=== PATIENT | female | born 1955 | race Caucasian/White ===

== ENCOUNTER 2018-07-26 04:01 | Emergency (ER) | payer MEDICARE, MEDICAID ==
[~2018-07-26] VITALS: Ht 162.6 cm; Wt 72.6 kg
[2018-07-26 04:24] VITALS: BP 148/97
[2018-07-26] MEDS ORDERED: Hydromorphone 0.5mg/0.5ml inj IVP ONE (04:30)
--- NOTE | 2018-07-26 04:30 | Emergency Room Report ---
History of Present Illness General Chief Complaint: Pain Source: Patient Present Illness HPI Is a 63-year-old female with no cerebrovascular past medical history. She had back surgery with spinal fusion about 2 and half years ago. Since then she's been doing well. She presents with chief complaint of right flank pain and muscle spasm started tonight. She also had a large amount of diarrhea. No fever chills but no nausea no vomiting. Pain localized the right side. Worse with movement. Unable to get comfortable. No relief with Motrin. No other complaint. No incontinence of bowel or urine. No numbness to her leg. Pain is not around her surgical site. Pain is 8 out of 10. No radiation. Allergies: Uncoded Allergies: antiemetics (Allergy, Intermediate, 07/26/18) Patient History Past Medical History: see triage record, old chart reviewed Past Surgical History: other Pertinent Family History: none Social History: Denies: smoking Now: No Immunizations: other Reviewed Nursing Documentation: PMH: Agreed; PSxH: Agreed Nursing Documentation-PM Past Medical History: No History, Except For Review of Systems Eye: Denies: eye pain, blurred vision ENT: Denies: ear pain, nose congestion, throat swelling Respiratory: Denies: cough, shortness of breath Cardiovascular: Denies: chest pain, palpitations Gastrointestinal: Denies: abdominal pain, diarrhea, nausea, vomiting Musculoskeletal: Reports: back pain; Denies: joint pain Skin: Denies: rash Neurological: Denies: headache, numbness Endocrine: Denies: increased thirst, increased urine Hematologic/Lymphatic: Denies: easy bruising All Other Systems: negative except mentioned in HPI Physical Exam Vital Signs Date Time Temp Pulse Resp B/P (MAP) Pulse Ox O2 Delivery O2 Flow Rate FiO2 07/26/18 04:11 98.2 102 18 157/102 92 Room Air 98.2 vitals with high blood pressure Sp02 EP Interpretation: reviewed, normal General Appearance: well appearing, no apparent distress, alert Head: normocephalic, atraumatic Eyes: bilateral eye PERRL, bilateral eye EOMI ENT: hearing grossly normal, normal pharynx Neck: full range of motion, supple, no meningismus Respiratory: chest non-tender, lungs clear, normal breath sounds Cardiovascular #1: regular rate, rhythm, no murmur Gastrointestinal: normal bowel sounds, non tender, no mass, no organomegaly, no bruit, non-distended Musculoskeletal: back normal, gait/station normal, normal range of motion, other - Muscle spasm to the right flank around the midthoracic upper lumbar area. No midline tenderness. No rash. Psychiatric: mood/affect normal Skin: warm/dry Medical Decision Making Diagnostic Impression: Primary Impression: Muscle spasm of back Additional Impression: UTI (urinary tract infection) Qualified Codes: N30.00 - Acute cystitis without hematuria ER Course Patient with back spasm of the right flank area. No evidence of gallstone. No evidence of cauda equina syndrome, spinal epidural abscess or neoplastic process. Urine show leukocytosis, few bacteria in small amount of WBC. We'll cover for potential for UTI. She did have a large amount of diarrhea. This may cause some of her spasm and pain. Pain is better controlled now. She does have elevated lipase but no left upper quadrant pain. Lab Results Impression labs unremarkable Last Vital Signs Date Time Temp Pulse Resp B/P (MAP) Pulse Ox O2 Delivery O2 Flow Rate FiO2 07/26/18 04:24 98.2 78 18 148/97 94 Room Air 98.2 Status: improved Disposition: HOME, SELF-CARE Condition: Stable Scripts Diazepam* (VALIUM*) 5 Mg Tablet 5 MG ORAL TID PRN for spasm, #15 TAB 0 Refills Prov: Cuate Jim MD 07/26/18 Cephalexin* (KEFLEX*) 500 Mg Capsule 500 MG ORAL TID, #21 CAP Prov: Cuate Jim MD 07/26/18 Hydrocodone/Acetaminophen 5-325* (HYDROCODONE/ACETAMINOPHEN 5-325*) 1 Each Tablet 1 TAB ORAL Q6H PRN for For Pain, #20 TAB 0 Refills Prov: Cuate Jim MD 07/26/18 Additional Instructions: Follow-up with your doctor in 2-3 days if not better. Return if symptom worsen. Cuate Jim MD Jul 26, 2018 04:30
[2018-07-26 05:12] LABS: ANION GAP 16 mmol/L (5-15); BLOOD UREA NITROGEN 18 mg/dL (7-18); CALCIUM 9.7 MG/DL (8.5-10.1); CARBON DIOXIDE 19 MMOL/L (21-32); CHLORIDE 105 MMOL/L (98-107); CREATININE 0.9 MG/DL (0.55-1.30); POTASSIUM 3.6 MMOL/L (3.5-5.1); SODIUM 140 MMOL/L (136-145)
[2018-07-26] MEDS ORDERED: HYDROmorphone 1mg/ml Carpuject IVP ONE (05:15)
[2018-07-26 05:16] LABS: ALANINE AMINOTRANSFERASE 46 U/L (12-78); ALBUMIN 3.9 G/DL (3.4-5.0); ALBUMIN/GLOBULIN RATIO 0.9 (1.0-2.7); ALKALINE PHOSPHATASE 89 U/L (46-116); ASPARTATE AMINO TRANSFERASE 25 U/L (15-37); BILIRUBIN,TOTAL 0.8 MG/DL (0.2-1.0)
[2018-07-26 05:36] LABS: BASOPHILS % (AUTO) 0.6 % (0.0-2.0); HEMATOCRIT 44.3 % (37.0-47.0); HEMOGLOBIN 15.3 G/DL (12.0-16.0); LYMPHOCYTES % (AUTO) 29.6 % (20.0-45.0); MEAN CORPUSCULAR VOLUME 84 FL (80-99); MONOCYTES % (AUTO) 5.1 % (1.0-10.0); NEUTROPHILS % (AUTO) 62.7 % (45.0-75.0); PLATELET COUNT 331 K/UL (150-450); RED BLOOD COUNT 5.29 M/UL (4.20-5.40); RED CELL DISTRIBUTION WIDTH 11.2 % (11.6-14.8); WHITE BLOOD COUNT 8.7 K/UL (4.8-10.8)
[2018-07-26 05:49] LABS: APPEARANCE,URINE CLEAR; BILIRUBIN, URINE NEGATIVE (NEGATIVE); GLUCOSE, URINE (UA) NEGATIVE (NEGATIVE); KETONES,URINE 1+ (NEGATIVE); LEUKOCYTE ESTERASE ,URINE 2+ (NEGATIVE); NITRITE,URINE NEGATIVE (NEGATIVE); PH,URINE 5 (4.5-8.0); PROTEIN,URINE 2+ (NEGATIVE); UROBILINOGEN,URINE NORMAL MG/DL (0.0-1.0)
[2018-07-26 05:53] LABS: COLOR,URINE YELLOW
[2018-07-26] MEDS ORDERED: CEPHALEXIN500 MG ORAL (06:10)
[2018-07-26] MEDS ORDERED: HYDROCODON-ACE1 EA15 ORAL (06:10)
[2018-07-26] MEDS ORDERED: VALIUM5 MG ORAL (06:10)
[2018-07-26] MEDS ORDERED: cefTRIAXone 1 GM in NS 55 ML IVPB ONE (06:15)
[2018-07-26 06:41] VITALS: BP 132/82
[2018-07-26 06:42] VITALS: BP 132/82
[2018-07-26] MEDS ORDERED: TAMSULOSIN HCL0.4 MG ORAL (17:07)
== END 2018-07-26 07:13 | disposition home or self-care (01) ==
LOC: EMR 04:34
DX: M62.830 Muscle spasm of back (principal); N39.0 Urinary tract infection, site not specified
CPT/HCPCS: 36415; 80053; 81003; 83690; 85025; 96361; 96365; 96375; 96376; 99284; J0696; J1170

== ENCOUNTER 2018-07-26 13:38 | Emergency (ER) | payer MEDICARE, MEDICAID ==
[~2018-07-26] VITALS: Ht 162.6 cm; Wt 72.6 kg
[~2018-07-26 13:38] MED LIST: CEPHALEXIN500 MG ORAL; HYDROCODON-ACE1 EA15 ORAL; VALIUM5 MG ORAL
[2018-07-26] MEDS ORDERED: Norco 5mg/325mg tab ORAL ONE (14:45)
[2018-07-26] MEDS ORDERED: Morphine Sulfate 4mg/ml Inj (IV/IM USE ONLY) IM ONE (15:15)
--- NOTE | 2018-07-26 16:17 | Diagnostic Imaging Report ---
Indication: Abdominal pain Technique: Continuous helical transaxial imaging of the abdomen and pelvis was obtained from the lung bases to the pubic symphysis. No intravenous contrast was administered. Coronal 2-D reformats were also obtained. Automatic Exposure Control was utilized. Total Dose length Product (DLP): 830.[address] Dose Index Volume (CTDIvol): 15.23 mGy Comparison: none Findings: Lung bases are clear. There is a tiny stone in the upper pole the right kidney nonobstructive. No hydronephrosis seen. The appendix is normal. There is no free fluid or free air or evidence of bowel obstruction. Uterus noted. Mild arterial calcifications are present. Lower lumbar fusion hardware demonstrated L4-S1 right laminectomies at L5 and L4 noted. IMPRESSION: Normal appendix. Tiny nonobstructive stone in the upper pole right kidney. Lower lumbar surgery as described above The CT scanner at [facility] is accredited by the [employer] and the scans are performed using dose optimization techniques as appropriate to a performed exam including Automatic Exposure control.
[2018-07-26 16:38] VITALS: BP 142/89
[2018-07-26] MEDS ORDERED: Tamsulosin 0.4mg cap ORAL ONE (16:41)
[2018-07-26] MEDS ORDERED: Ketorolac 30mg Inj IM ONE (16:45)
--- NOTE | 2018-07-26 17:06 | Emergency Room Report ---
History of Present Illness General Chief Complaint: Lower Back Pain or Injury Source: Patient Present Illness HPI 63-year-old female presents to the emergency department complaining of 10 out of 10 in severity pain in the right flank area since early this morning. Patient reports that she was seen here and diagnosed with muscle spasm and was given prescriptions for muscle relaxer, antibiotic for possible UTI and Moonachie for her pain. Patient states that pharmacy states that the prescription for Moonachie was filled out incorrectly and she was unable to fill this prescription. Patient brought the prescription back here with her. Patient states that she despite taking the other medications continues to have severe symptoms and she started to become very worried. Patient denies nausea, vomiting, fevers, chills. Patient reports urinary frequency denies dysuria, hematuria or urgency. Patient states that initially her pain would wax and wane however it is become more constant. She reports history of previous low back surgery however she states that the side of her pain today is at a different location. He denies trauma or fall or recent strenuous activities. Denies: constipation, nausea/ vomiting, blood in the urine, vomit or stool, denies tenderness to the abdomen. Allergies: Uncoded Allergies: antiemetics (Allergy, Intermediate, 07/26/18) Patient History Past Medical History: see triage record Past Surgical History: none Pertinent Family History: none Now: No Reviewed Nursing Documentation: PMH: Agreed; PSxH: Agreed Review of Systems All Other Systems: negative except mentioned in HPI Physical Exam Vital Signs Date Time Temp Pulse Resp B/P (MAP) Pulse Ox O2 Delivery O2 Flow Rate FiO2 07/26/18 13:40 98.4 95 18 157/90 95 Room Air 98.4 Sp02 EP Interpretation: reviewed, normal General Appearance: alert, GCS 15, non-toxic, moderate distress Head: normocephalic, atraumatic Eyes: bilateral eye normal inspection, bilateral eye PERRL ENT: hearing grossly normal, normal voice Neck: full range of motion Respiratory: chest non-tender, lungs clear, normal breath sounds, no wheezing, speaking full sentences Cardiovascular #1: regular rate, rhythm Gastrointestinal: normal bowel sounds, non tender, soft Genitourinary: normal inspection, CVA tenderness (R) Musculoskeletal: back normal, gait/station normal, normal range of motion, non- tender Neurologic: alert, oriented x3, responsive, motor strength/tone normal, sensory intact, normal gait, speech normal, grossly normal Psychiatric: judgement/insight normal Skin: normal color, no rash, warm/dry, well hydrated Medical Decision Making PA Attestation Dr. renner is my supervising Physician whom patient management has been discussed with. Diagnostic Impression: Primary Impression: Right flank pain Additional Impression: Renal calculus, right ER Course 63-year-old female presents to the emergency department complaining of 10 out of 10 in severity pain in the right flank area since early this morning. Patient reports that she was seen here and diagnosed with muscle spasm and was given prescriptions for muscle relaxer, antibiotic for possible UTI and Moonachie for her pain. Patient states that pharmacy states that the prescription for Moonachie was filled out incorrectly and she was unable to fill this prescription. Patient brought the prescription back here with her. Patient states that she despite taking the other medications continues to have severe symptoms and she started to become very worried. Patient denies nausea, vomiting, fevers, chills. Patient reports urinary frequency denies dysuria, hematuria or urgency. Patient states that initially her pain would wax and wane however it is become more constant. She reports history of previous low back surgery however she states that the side of her pain today is at a different location. He denies trauma or fall or recent strenuous activities. Denies: constipation, nausea/ vomiting, blood in the urine, vomit or stool, denies tenderness to the abdomen. Ddx considered but are not limited to Diverticulitis, acute appy, diarrhea,UC, PUD, GE, pancreatitis, gallstone, kidney stone, pyelonephritis, UTI, obstruction. Vital signs: are WNL, pt. is afebrile H&PE are most consistent with possible renal calculi will evaluate - reviewed chart from most recent visit this am. pt. had UA and labs performed which were unremarkable . no CT imaging. ORDERS: -CBC, CMP, lipase, - UA - CT abdomen and pelvis no contrast: right renal calculi. ED INTERVENTIONS: -- 1000NS --4 mg Morphine IM for pain - Moonachie PO - Flomax PO -Toradol IM d/w pt. That stone appears small and non obstructing. continue to take abx and previously prescribed pain medications. Will need PCP follow up within 3-5 days. Pt was offered admission for intractable pain as she was concerned / worried about filling her rx, and that she is home on her own and worried. pt. declined. Pt. was given very strict ED return precautions for worsening or new symptoms. pt. verbalized her understanding and agreement with this treatment and follow up plan. pt. instructed to stay hydrated and drink plenty of water. DISCHARGE: At this time pt. is stable for d/c to home. Will provide printed patient care instructions, and any necessary prescriptions. Care plan and follow up instructions have been discussed with the patient prior to discharge. CT/MRI/US Diagnostic Results CT/MRI/US Diagnostic Results : Imaging Test Ordered: CT Abdomen and Pelvis Non Contrast Impression "Normal appendix. Tiny nonobstructive stone in the upper pole right kidney. Lower lumbar surgery as described above" Per official radiology report- Please see report for specific details. Last Vital Signs Date Time Temp Pulse Resp B/P (MAP) Pulse Ox O2 Delivery O2 Flow Rate FiO2 07/26/18 16:43 98.6 07/26/18 16:38 88 19 142/89 96 Room Air Disposition: HOME, SELF-CARE Condition: Stable Scripts Tamsulosin Hcl (TAMSULOSIN HCL*) 0.4 Mg Cap.er.24h 0.4 MG ORAL BEDTIME, #5 CAP Prov: Gaviota Melvin 07/26/18 Referrals: NOT CHOSEN IPA/MD,REFERRING (PCP) Patient Instructions: Kidney Stones, [id number] Additional Instructions: Take medications as directed. Drink plenty of water, continue previously prescribed medications: most Importantly antibiotics. Follow up with a Primary Care Provider in 3-5 days, even if your symptoms have resolved. --Please review list of primary care clinics, if you do not already have a primary care provider Return sooner to ED if new symptoms occur, or current symptoms become worse. Do not drink alcohol, drive, or operate heavy machinery while taking previously prescribed Moon[place] and Valium as this may cause drowsiness. - Please note that this Emergency Department Report was dictated using [employer] technology software, occasionally this can lead to erroneous entry secondary to interpretation by the dictation equipment. Gaviota Melvin Jul 26, 2018 17:06
[2018-07-26] MEDS ORDERED: TAMSULOSIN HCL0.4 MG ORAL (17:07)
[2018-07-26 17:23] VITALS: BP 142/89
[2018-07-26] MEDS ORDERED: Tamsulosin 0.4mg cap ORAL SCH (21:00)
== END 2018-07-26 17:23 | disposition home or self-care (01) ==
LOC: EMR 16:09
DX: N20.0 Calculus of kidney (principal)
CPT/HCPCS: 74176; 96372; 99284; J1885; J2270

== ENCOUNTER 2018-07-31 20:41 | Emergency (ER) | payer MEDICARE, MEDICAID ==
[~2018-07-31] VITALS: Ht 162.6 cm; Wt 73.5 kg
[~2018-07-31 20:41] MED LIST changes: +TAMSULOSIN HCL0.4 MG ORAL
--- NOTE | 2018-07-31 21:11 | Emergency Room Report ---
History of Present Illness General Chief Complaint: Abdominal Pain Source: Patient Present Illness HPI Is a 63-year-old female who had previous lumbar surgery. She was seen here on the for right flank pain. CT scan showed tiny nonobstructing kidney stone on the right. Urine may be infection. She was charged home with antibiotics and pain medication. She was doing well until today. Now she started having vomiting and diarrhea. Also flank pain came back. She said she had tiny amount of blood this morning but none in the afternoon. Pain is 9 out of 10. Localized to the right side. No fever or chills. Worse with movement. No other complaint. Nothing made it better. Nothing made it worse. Allergies: Uncoded Allergies: antiemetics (Allergy, Intermediate, 07/26/18) Patient History Past Medical History: see triage record, old chart reviewed Past Surgical History: other Pertinent Family History: none Social History: Denies: smoking Last Menstrual Period: 1997 Now: No : 0 Para: 0 Immunizations: other Reviewed Nursing Documentation: PMH: Agreed; PSxH: Agreed Nursing Documentation-PMH Past Medical History: No History, Except For Review of Systems Eye: Denies: eye pain, blurred vision ENT: Denies: ear pain, nose congestion, throat swelling Respiratory: Denies: cough, shortness of breath Cardiovascular: Denies: chest pain, palpitations Gastrointestinal: Reports: abdominal pain; Denies: diarrhea, nausea, vomiting Musculoskeletal: Reports: back pain; Denies: joint pain Skin: Denies: rash Neurological: Denies: headache, numbness Endocrine: Denies: increased thirst, increased urine Hematologic/Lymphatic: Denies: easy bruising All Other Systems: negative except mentioned in HPI Physical Exam Vital Signs Date Time Temp Pulse Resp B/P (MAP) Pulse Ox O2 Delivery O2 Flow Rate FiO2 07/31/18 20:54 98.1 101 16 180/93 98 Room Air vitals with high blood pressure Sp02 EP Interpretation: reviewed, normal General Appearance: well appearing, no apparent distress, alert Head: normocephalic, atraumatic Eyes: bilateral eye PERRL, bilateral eye EOMI ENT: hearing grossly normal, normal pharynx Neck: full range of motion, supple, no meningismus Respiratory: chest non-tender, lungs clear, normal breath sounds Cardiovascular #1: regular rate, rhythm, no murmur Gastrointestinal: normal bowel sounds, non tender, no mass, no organomegaly, no bruit, non-distended Musculoskeletal: back normal, gait/station normal, normal range of motion Psychiatric: mood/affect normal Skin: warm/dry Medical Decision Making Diagnostic Impression: Primary Impression: Back pain Qualified Codes: M54.5 - Low back pain ER Course Patient with right flank pain/back pain. CT scan unremarkable. I do not think that but nonobstructing punctated right kidney stone as the cause of the pain. No evidence of any dissection. No evidence of any cauda equina syndrome, spinal after abscess or neoplastic process. I suspect the pain is from degenerative back disease. She may need another MRI. Skin be done as an outpatient. No evidence of acute abdomen. Lab Results Impression labs unremarkable CT/MRI/US Diagnostic Results CT/MRI/US Diagnostic Results : Imaging Test Ordered: CT abdomen and pelvis Impression no acute process per radiologist Last Vital Signs Date Time Temp Pulse Resp B/P (MAP) Pulse Ox O2 Delivery O2 Flow Rate FiO2 07/31/18 20:54 98.1 101 16 180/93 98 Room Air Status: improved Disposition: HOME, SELF-CARE Condition: Stable Scripts Ibuprofen* (MOTRIN*) 600 Mg Tablet 600 MG ORAL THREE TIMES A DAY, #30 TAB 0 Refills Prov: Cuate Jim MD 07/31/18 Hydrocodone/Acetaminophen 5-325* (HYDROCODONE/ACETAMINOPHEN 5-325*) 1 Each Tablet 1 TAB ORAL Q6H PRN for For Pain, #20 TAB 0 Refills Prov: Cuate Jim MD 07/31/18 Additional Instructions: Follow-up with your Dr within a week. Return if symptom worsen. You may need an MRI if not better. Cuate Jim MD Jul 31, 2018 21:11
[2018-07-31] MEDS ORDERED: Ketorolac 30mg Inj IV ONE (21:15)
[2018-07-31] MEDS ORDERED: Morphine Sulfate 4mg/ml Inj (IV/IM USE ONLY) IVP ONE (21:15)
[2018-07-31 21:52] LABS: BASOPHILS % (AUTO) 0.8 % (0.0-2.0); EOSINOPHILS % (AUTO) 2.2 % (0.0-3.0); HEMATOCRIT 45.2 % (37.0-47.0); HEMOGLOBIN 15.6 G/DL (12.0-16.0); LYMPHOCYTES % (AUTO) 39.9 % (20.0-45.0); MEAN CORPUSCULAR VOLUME 86 FL (80-99); MONOCYTES % (AUTO) 2.9 % (1.0-10.0); NEUTROPHILS % (AUTO) 54.1 % (45.0-75.0); PLATELET COUNT 374 K/UL (150-450); RED BLOOD COUNT 5.27 M/UL (4.20-5.40); RED CELL DISTRIBUTION WIDTH 11.5 % (11.6-14.8)
--- NOTE | 2018-07-31 22:06 | Diagnostic Imaging Report ---
EXAM: CT Abdomen and Pelvis Without Intravenous Contrast CLINICAL HISTORY: ABD PAIN TECHNIQUE: Axial computed tomography images of the abdomen and pelvis without intravenous contrast. CTDI is 0.15, 15.47 mGy and DLP is 815 mGy-cm. One or more of the following dose reduction techniques were used: automated exposure control, adjustment of the mA and/or kV according to patient size, use of iterative reconstruction technique. COMPARISON: 07/26/2018 FINDINGS: Lung bases: Bibasilar atelectasis. ABDOMEN: Liver: Hepatic steatosis. Gallbladder and bile ducts: Unremarkable. Pancreas: Unremarkable. Spleen: Unremarkable. Adrenals: Unremarkable. Kidneys and ureters: Nonobstructing calculi within the right kidney. Stomach and bowel: Unremarkable. PELVIS: Appendix: Appendix is unremarkable. Bladder: Unremarkable. Reproductive: Unremarkable as visualized. ABDOMEN and PELVIS: Intraperitoneal space: Unremarkable. Bones/joints: Post surgical changes within the lumbar spine. No acute fracture. No dislocation. Soft tissues: Unremarkable. Vasculature: Unremarkable. No abdominal aortic aneurysm. Lymph nodes: Unremarkable. IMPRESSION: No acute findings.
[2018-07-31 22:08] LABS: ANION GAP 10 mmol/L (5-15); BLOOD UREA NITROGEN 14 mg/dL (7-18); CALCIUM 9.6 MG/DL (8.5-10.1); CARBON DIOXIDE 25 MMOL/L (21-32); CHLORIDE 106 MMOL/L (98-107); POTASSIUM 4.7 MMOL/L (3.5-5.1); SODIUM 141 MMOL/L (136-145)
[2018-07-31 22:28] LABS: APPEARANCE,URINE CLEAR; BILIRUBIN, URINE NEGATIVE (NEGATIVE); COLOR,URINE AMBER; GLUCOSE, URINE (UA) NEGATIVE (NEGATIVE); KETONES,URINE 1+ (NEGATIVE); LEUKOCYTE ESTERASE ,URINE 1+ (NEGATIVE); NITRITE,URINE NEGATIVE (NEGATIVE); PH,URINE 6 (4.5-8.0); PROTEIN,URINE NEGATIVE (NEGATIVE); UROBILINOGEN,URINE NORMAL MG/DL (0.0-1.0)
[2018-07-31] MEDS ORDERED: HYDROmorphone 1mg/ml Carpuject IVP ONE (22:30)
[2018-07-31] MEDS ORDERED: HYDROCODON-ACE1 EA15 ORAL (22:33)
[2018-07-31] MEDS ORDERED: IBUPROFEN600 MG ORAL (22:33)
[2018-07-31 23:00] VITALS: BP 180/93
== END 2018-07-31 22:55 | disposition home or self-care (01) ==
LOC: EMR 21:13
DX: M54.5 Low back pain (principal)
CPT/HCPCS: 36415; 74176; 80048; 81003; 85025; 96361; 96374; 96375; 99284; J1170; J1885; J2270; J2405

== ENCOUNTER 2018-08-01 14:26 | Emergency (ER) | payer MEDICARE, MEDICAID ==
[~2018-08-01] VITALS: Ht 162.6 cm; Wt 73.5 kg
[~2018-08-01 14:26] MED LIST changes: +IBUPROFEN600 MG ORAL
[2018-08-01] MEDS ORDERED: Ketorolac 60mg Inj IM ONE (15:00)
[2018-08-01 15:12] VITALS: BP 160/98
--- NOTE | 2018-08-01 15:12 | Emergency Room Report ---
History of Present Illness General Chief Complaint: Back Pain-No Injury Source: Patient Present Illness HPI patient is a [age]-year-old female with history of kidney stone and chronic low back pain here complaining of increased back pain 1 week. Patient was just here one day ago all scans and x-rays were done on her lower back and she was diagnosed with renal stone and chronic low back pain. She was given a prescription for Grayling 5 quantity #20 and ibuprofen as needed for pain. patient shows the prescription from yesterday and has not had a chance to fill it as she is in a lot of pain. Patient also reports nausea and is allergic to antiemetics. Patient is rating the pain 10 out of 10 with radiation to right leg and numbness in right leg denies taking any medications for pain. Patient yet to be making appointments with her primary care provider and schedule an MRI. Denies SOB, chest pain, palpitation, fever chills. Patient is complaining of urinary incontinence however bowel movements are normal. Denies saddle paresthesia Allergies: Uncoded Allergies: antiemetics (Allergy, Intermediate, 07/26/18) Patient History Past Medical History: see triage record Past Surgical History: unable to obtain Pertinent Family History: none Now: No Immunizations: UTD Reviewed Nursing Documentation: PMH: Agreed; PSxH: Agreed Nursing Documentation-PMH Past Medical History: No History, Except For Review of Systems All Other Systems: negative except mentioned in HPI Physical Exam Vital Signs Date Time Temp Pulse Resp B/P (MAP) Pulse Ox O2 Delivery O2 Flow Rate FiO2 08/01/18 14:40 98.1 92 22 160/98 96 Room Air Sp02 EP Interpretation: reviewed, normal General Appearance: well appearing, no apparent distress, alert, GCS 15 Head: normocephalic, atraumatic Eyes: bilateral eye normal inspection, bilateral eye PERRL ENT: normal ENT inspection, hearing grossly normal, normal pharynx Neck: normal inspection, full range of motion, supple, thyroid normal Respiratory: normal inspection, chest non-tender, normal breath sounds, no rhonchi, no wheezing Cardiovascular #1: normal inspection, regular rate, rhythm, no edema, no murmur Gastrointestinal: normal inspection, non tender, soft Rectal: deferred Genitourinary: deferred Musculoskeletal: tender - right CVA Neurologic: normal inspection, alert, oriented x3, responsive, flap curer III-XII nml as tested Psychiatric: normal inspection, judgement/insight normal, memory normal Skin: normal inspection, normal color, no rash, warm/dry Lymphatic: normal inspection, no adenopathy, axilla node tender (R) Medical Decision Making PA Attestation all diagnosis and treatment plans were reviewed and discussed with my supervising physician Dr. Connolly Diagnostic Impression: Primary Impression: Muscle strain Additional Impressions: Sciatica Renal stone ER Course patient is a [age]-year-old female with history of kidney stone and chronic low back pain here complaining of increased back pain 1 week. Patient was just here one day ago all scans and x-rays were done on her lower back and she was diagnosed with renal stone and chronic low back pain. She was given a prescription for Grayling 5 quantity #20 and ibuprofen as needed for pain. patient shows the prescription from yesterday and has not had a chance to fill it as she is in a lot of pain. Patient also reports nausea and is allergic to antiemetics. Patient is rating the pain 10 out of 10 with radiation to right leg and numbness in right leg denies taking any medications for pain. Patient yet to be making appointments with her primary care provider and schedule an MRI. Denies SOB, chest pain, palpitation, fever chills. Patient is complaining of urinary incontinence however bowel movements are normal. Denies saddle paresthesia Ddx considered but are not limited to renal stone, chronic low back pain, sciatica Vital signs: are WNL, pt. is afebrile H&PE are most consistent with renal stone, sciatica ORDERS: Toradol 60, norco 5 ED INTERVENTIONS: toradol 60 DISCHARGE: At this time pt. is stable for d/c to home. Will provide printed patient care instructions, and any necessary prescriptions. Care plan and follow up instructions have been discussed with the patient prior to discharge. continue taking Gray[place] 5 and ibuprofen as needed for pain follow with the primary care provider and MRI of the lumbar spine needed. patient is very impatient and wants to have everything regarding figured out and claims that she is in a lot of pain. However she walked out of the ER comfortably she mentioned she has not filled the prescription yet and has not been able to go to different pharmacies as they refused to fill it for her and she is waiting until Thursday morning to go to [facility] pharmacy. CURES was done on patient was up-to-date. no recent activity was noted on CURES Last Vital Signs Date Time Temp Pulse Resp B/P (MAP) Pulse Ox O2 Delivery O2 Flow Rate FiO2 08/01/18 14:40 98.1 92 22 160/98 96 Room Air Disposition: HOME, SELF-CARE Condition: Stable Patient Instructions: Back Pain, Adult, Sciatica Additional Instructions: follow with primary care provider started taking Gray[place] 5 as it was prescribed recently take ibuprofen as needed for pain. Baljinder Cortes Aug 01, 2018 15:12
[2018-08-01] MEDS ORDERED: Norco 5mg/325mg tab ORAL ONE (15:45)
[2018-08-01 16:11] VITALS: BP 160/98
== END 2018-08-01 16:11 | disposition home or self-care (01) ==
LOC: EMR 14:58
DX: S39.012A Strain of muscle, fascia and tendon of lower back, initial encounter (principal); X58.XXXA Exposure to other specified factors, initial encounter; Y92.9 Unspecified place or not applicable; M54.40 Lumbago with sciatica, unspecified side; N20.0 Calculus of kidney
CPT/HCPCS: 96372; 99283

== ENCOUNTER 2020-03-14 21:30 | Emergency (ER) | payer MEDICARE, MEDICAID ==
[~2020-03-14] VITALS: Ht 162.6 cm; Wt 74.4 kg
[2020-03-14 22:00] VITALS: BP 153/90
--- NOTE | 2020-03-14 22:24 | Diagnostic Imaging Report ---
EXAM: CT Abdomen and Pelvis Without Intravenous Contrast CLINICAL HISTORY: ABD PAIN TECHNIQUE: Axial computed tomography images of the abdomen and pelvis without intravenous contrast. CTDI is 9.3 mGy and DLP is 524.30 mGy-cm. One or more of the following dose reduction techniques were used: automated exposure control, adjustment of the mA and/or kV according to patient size, use of iterative reconstruction technique. COMPARISON: CT abdomen and pelvis dated 07/31/2018 FINDINGS: Lung bases: Unremarkable. ABDOMEN: Liver: Hepatic steatosis. Gallbladder and bile ducts: Unremarkable. Pancreas: Unremarkable. Spleen: Unremarkable. Adrenals: Unremarkable. Kidneys and ureters: Unremarkable. Stomach and bowel: Unremarkable. PELVIS: Appendix: Appendix is unremarkable. Bladder: Unremarkable. Reproductive: Uterus is unremarkable. ABDOMEN and PELVIS: Intraperitoneal space: Unremarkable. Bones/joints: changes within the spine. No acute fracture. No dislocation. Soft tissues: Unremarkable. Vasculature: Vascular calcifications. Lymph nodes: Unremarkable. IMPRESSION: No acute findings in the abdomen or pelvis.
[2020-03-14] MEDS ORDERED: Ketorolac 30mg Inj IV ONE (22:30)
--- NOTE | 2020-03-14 22:36 | Emergency Room Report ---
History of Present Illness General Chief Complaint: Female Urogenital Problems Source: Patient Present Illness HPI Patient is a 64-year-old female past medical history of obesity and kidney stone 2 years ago who presents to the ER complaining of right-sided lower back pain and bladder spasms since last night. Patient states that her pain has been increasing since yesterday. She complains of nausea but denies vomiting. Patient states that she think she had a fever yesterday but has resolved today. She denies any chills. She denies any chest pain or shortness of breath. Patient complains of one episode of hematuria. She also states that she had diarrhea earlier this morning but she took 2 doses of Imodium which seemed to resolve her symptoms. Patient denies any rash. 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: No Patient History Last Menstrual Period: n/a Reviewed Nursing Documentation: PMH: Agreed; PSxH: Agreed Review of Systems All Other Systems: negative except mentioned in HPI Physical Exam Vital Signs Date Time Temp Pulse Resp B/P (MAP) Pulse Ox O2 Delivery O2 Flow Rate FiO2 03/14/20 21:37 98.6 104 19 153/90 (111) 94 Room Air Sp02 EP Interpretation: reviewed, normal General Appearance: no apparent distress, alert, GCS 15, non-toxic Head: normocephalic, atraumatic Eyes: bilateral eye normal inspection, bilateral eye PERRL ENT: hearing grossly normal, normal pharynx, no angioedema, normal voice Neck: full range of motion, supple/symm/no masses Respiratory: chest non-tender, lungs clear, normal breath sounds, speaking full sentences Cardiovascular #1: regular rate, rhythm, no edema Cardiovascular #2: 2+ carotid (R), 2+ carotid (L) Gastrointestinal: normal bowel sounds, soft, non-distended, no guarding, no rebound, other - generalized abd ttp, mild Rectal: deferred Genitourinary: CVA tenderness (R) Musculoskeletal: back normal, normal range of motion, calf tenderness, gait/ station normal, non-tender Psychiatric: no suicidal/homicidal ideation Skin: no rash Lymphatic: no adenopathy Medical Decision Making Diagnostic Impression: Primary Impression: Flank pain Additional Impression: Hyperglycemia ER Course At 11:15 PM I updated the patient on her CAT scan findings. No acute intra- abdominal or pelvic pathology seen on her CT. Patient is walking to the restroom to give us a urine sample at this time. Patient's vital signs have been stable. Patient has no elevated white blood cell count. She is afebrile. Labs demonstrate hyperglycemia and glucose in her urine. No anion gap and CO2 normal with no ketones. I have advised her that she needs to follow-up with her doctor to get worked up for her hyperglycemia and possibly new onset diabetes. Patient CT demonstrates no acute intra-abdominal or pelvic pathology. Patient did have diarrhea earlier today. Unclear etiology for the patient's pain. I have consulted with her primary care physician and asked the patient to call his office for follow-up tomorrow. After discussing risks and benefits of further diagnostics , treatment plans, as well as indications for and risks of admission, the patient is agreeable to being discharged home. I have explained that their evaluation and treatment in the emergency department today is an important step towards them achieving better health but that their evaluation today is not intended to replace further evaluation and treatment by a physician in their local clinic. I have explained that while the current findings suggest no immediate life threatening emergency they will require further evaluation and treatment by a physician of their choice in their area. They understand that it will be necessary for them to review the final reports of their ED visit with their clinic physician. We have reviewed indications for return to the Emergency Department. I have explained that additional time may need to pass and/or additional testing as an outpatient may be necessary before a definitive diagnosis can be made. They tell me they are willing to follow up as instructed within the timeframe I recommend. They appear to understand what we discussed. Additionally they understand that if they are unable to be seen by an outpatient physician they are welcome, and in fact should, return to the Emergency Department for a repeat evaluation. The patient is stable at time of discharge. Laboratory Tests Test 03/14/20 22:22 White Blood Count 9.7 K/UL (4.8-10.8) Red Blood Count 4.96 M/UL (4.20-5.40) Hemoglobin 15.0 G/DL (12.0-16.0) Hematocrit 46.6 % (37.0-47.0) Mean Corpuscular Volume 94 FL (80-99) Mean Corpuscular Hemoglobin 30.2 PG (27.0-31.0) Mean Corpuscular Hemoglobin Concent 32.2 G/DL (32.0-36.0) Red Cell Distribution Width 13.2 % (11.6-14.8) Platelet Count 300 K/UL (150-450) Mean Platelet Volume 7.7 FL (6.5-10.1) Neutrophils (%) (Auto) 50.4 % (45.0-75.0) Lymphocytes (%) (Auto) 42.5 % (20.0-45.0) Monocytes (%) (Auto) 4.4 % (1.0-10.0) Eosinophils (%) (Auto) 1.6 % (0.0-3.0) Basophils (%) (Auto) 1.1 % (0.0-2.0) Prothrombin Time 10.5 SEC (9.30-11.50) Prothrombin Time INR 0.9 (0.9-1.1) Activated Partial Thromboplast Time 23 SEC (23-33) Sodium Level 141 MMOL/L (136-145) Potassium Level 3.9 MMOL/L (3.5-5.1) Chloride Level 104 MMOL/L (98-107) Carbon Dioxide Level 24 MMOL/L (21-32) Anion Gap 13 mmol/L (5-15) Blood Urea Nitrogen 16 mg/dL (7-18) Creatinine 1.3 MG/DL (0.55-1.30) Estimated Glomerular Filtration Rate 41.4 mL/min (>60) Glucose Level 319 MG/DL (74-106) H Calcium Level 9.3 MG/DL (8.5-10.1) Total Bilirubin 0.7 MG/DL (0.2-1.0) Aspartate Amino Transferase (AST) 50 U/L (15-37) H Alanine Aminotransferase (ALT) 90 U/L (12-78) H Alkaline Phosphatase 78 U/L (46-116) Total Protein 7.7 G/DL (6.4-8.2) Albumin 3.9 G/DL (3.4-5.0) Globulin 3.8 g/dL Albumin/Globulin Ratio 1.0 (1.0-2.7) Lipase 249 U/L (73-393) Rhythm Strip Diag. Results Rhythm Strip Time: 23:06 EP Interpretation: yes - Indu Philip MD Rate: 98 Rhythm: NSR, no PVC's, no ectopy Last Vital Signs Date Time Temp Pulse Resp B/P (MAP) Pulse Ox O2 Delivery O2 Flow Rate FiO2 03/14/20 21:37 98.6 104 19 153/90 (111) 94 Room Air Disposition: HOME, SELF-CARE Condition: Stable Scripts Hydrocodone Bit/Acetaminophen 5-325* (NORCO 5-325 TABLET*) 1 Each Tablet 1 TAB ORAL Q6H PRN for FOR PAIN, #12 TAB 0 Refills Prov: Indu Philip M.D. 03/14/20 Additional Instructions: The patient was provided with discharge instructions, notified to follow-up with a primary care doctor and or specialist in the next 24-48 hours, and to return to the ED if they have worsening of their symptoms. Please note that this report is being documented using [employer] technology. This can lead to erroneous entry secondary to incorrect interpretation by the dictating instrument. Indu Philip M.D. Mar 14, 2020 22:36
[2020-03-14 22:50] LABS: BASOPHILS % (AUTO) 1.1 % (0.0-2.0); EOSINOPHILS % (AUTO) 1.6 % (0.0-3.0); HEMATOCRIT 46.6 % (37.0-47.0); LYMPHOCYTES % (AUTO) 42.5 % (20.0-45.0); MEAN CORPUSCULAR VOLUME 94 FL (80-99); MONOCYTES % (AUTO) 4.4 % (1.0-10.0); NEUTROPHILS % (AUTO) 50.4 % (45.0-75.0); PLATELET COUNT 300 K/UL (150-450); RED BLOOD COUNT 4.96 M/UL (4.20-5.40); RED CELL DISTRIBUTION WIDTH 13.2 % (11.6-14.8); WHITE BLOOD COUNT 9.7 K/UL (4.8-10.8)
[2020-03-14 23:00] LABS: INR 0.9 (0.9-1.1)
[2020-03-14 23:03] LABS: ANION GAP 13 mmol/L (5-15); BLOOD UREA NITROGEN 16 mg/dL (7-18); CALCIUM 9.3 MG/DL (8.5-10.1); CARBON DIOXIDE 24 MMOL/L (21-32); CHLORIDE 104 MMOL/L (98-107); CREATININE 1.3 MG/DL (0.55-1.30); POTASSIUM 3.9 MMOL/L (3.5-5.1); SODIUM 141 MMOL/L (136-145)
[2020-03-14 23:15] LABS: ALANINE AMINOTRANSFERASE 90 U/L (12-78); ALBUMIN 3.9 G/DL (3.4-5.0); ALKALINE PHOSPHATASE 78 U/L (46-116); ASPARTATE AMINO TRANSFERASE 50 U/L (15-37); BILIRUBIN,TOTAL 0.7 MG/DL (0.2-1.0)
[2020-03-14 23:31] LABS: APPEARANCE,URINE CLEAR; BILIRUBIN, URINE NEGATIVE (NEGATIVE); COLOR,URINE PALE YELLOW; GLUCOSE, URINE (UA) 4+ (NEGATIVE); KETONES,URINE NEGATIVE (NEGATIVE); LEUKOCYTE ESTERASE ,URINE NEGATIVE (NEGATIVE); NITRITE,URINE NEGATIVE (NEGATIVE); PH,URINE 5 (4.5-8.0); PROTEIN,URINE NEGATIVE (NEGATIVE); UROBILINOGEN,URINE NORMAL MG/DL (0.0-1.0)
[2020-03-14 23:43] VITALS: BP 144/88
[2020-03-14] MEDS ORDERED: NORCO 5-325 TA1 EAC1 ORAL (23:44)
[2020-03-14] MEDS ORDERED: fentaNYL 100 mcg/2 mL IV ONE (23:45)
[2020-03-15] VITALS: BP 144/88
== END 2020-03-15 | disposition home or self-care (01) ==
LOC: EMR 22:00
DX: R10.9 Unspecified abdominal pain (principal); R73.9 Hyperglycemia, unspecified; Z88.8 Allergy status to other drugs, medicaments and biological substances
CPT/HCPCS: 36415; 74176; 80053; 81003; 83690; 85025; 85610; 85730; 96361; 96374; 96375; 99284; J1885; J3010; J7030